=== PATIENT | female | born 1950 | race Caucasian/White ===

== ENCOUNTER 2018-06-13 11:25 | Emergency (ER) | payer MEDICARE, OTHER ==
--- NOTE | 2018-06-13 12:09 | ED Physician Documentation ---
PD HPI LOWER EXT INJURY - Stated complaint Stated Complaint: GLF - Chief complaint Chief Complaint: Ext Problem - History obtained from History obtained from: Patient - History of Present Illness PD HPI LOW EXT INJURY LOCATION: Right, Foot Type of injury: Fall (There were camping a few nights ago and she fell coming out of bed in the middle of the night. She either forcefully plantarflexed the foot or all of her weight came down on it, she does not quite remember. The pain is in the distal foot, near the distal third and fourth metatarsals. She cannot walk or bear weight. No other injuries of significance.) Review of Systems Constitutional: reports: Reviewed and negative Throat: reports: Reviewed and negative Cardiac: reports: Reviewed and negative Respiratory: reports: Reviewed and negative PD PAST MEDICAL HISTORY - Past Medical History Past Medical History: No - Past Surgical History Past Surgical History: Yes Derm: Skin cancer surgery - Present Medications Home Medications: Ambulatory Orders Medication Instructions Recorded Confirmed HYDROcod/ACETAM 5/325 [[place] 5/325] 1 - 2 ea PO Q6H PRN #20 tablet 06/13/18 Knee Scooter 1 unit TD ONCE #1 06/13/18 - Allergies Allergies/Adverse Reactions: Allergies Allergy/AdvReac Type Severity Reaction Status Date / Time Penicillins Allergy Hives Verified 06/13/18 11:34 - Social History Does the pt smoke?: No Smoking Status: Never smoker Does the pt drink ETOH?: Yes ETOH Use: Wine Does the pt have substance abuse?: No - Immunizations Immunizations are current?: Yes PD ED PE NORMAL - Vitals Vital signs reviewed: Yes - General General: Alert and oriented X 3, No acute distress - Neck Neck: Supple, no meningeal sign, No bony TTP - Back Back: No CVA TTP, No spinal TTP - Extremities Extremities: Other (The right distal foot especially dorsally and kind of on the lateral side is swollen and ecchymotic and her maximal area of tenderness is over the mid third medical tarsal I think. There is no proximal foot tenderness over the cuboid or navicular's.) - Neuro Neuro: Alert and oriented X 3, Normal speech Results - Vitals Vitals: Vital Signs - 24 hr 06/13/18 06/13/18 11:30 13:28 Temperature 37.1 C 36.9 C Heart Rate 77 66 Respiratory 18 16 Rate Blood Pressure 112/44 L 114/64 O2 Saturation 100 98 Oxygen O2 Source Room air - Rads (name of study) 3v R foot Radiology: EMP read contemporaneously (IMPRESSION: Mildly displaced distal fourth and fifth metatarsal fractures. ) Procedures - Splint (location) RLE Splint applied by: Nurse Type of splint: Fiberglass, Short leg, Posterior Other: Patient tolerated well, No complications, Neurovascular intact, Crutches provided PD MEDICAL DECISION MAKING - Sepsis Event Vital Signs: Vital Signs - 24 hr 06/13/18 06/13/18 11:30 13:28 Temperature 37.1 C 36.9 C Heart Rate 77 66 Respiratory 18 16 Rate Blood Pressure 112/44 L 114/64 O2 Saturation 100 98 Oxygen O2 Source Room air Departure - Departure Disposition: 01 Home, Self Care Clinical Impression: Metatarsal fracture Qualifiers: Encounter type: initial encounter Metatarsal bone: fourth Fracture type: closed Fracture alignment: displaced Laterality: right Qualified Code(s): S92.341A - Displaced fracture of fourth metatarsal bone, right foot, initial encounter for closed fracture Closed displaced fracture of fifth metatarsal bone Qualifiers: Encounter type: initial encounter Laterality: right Qualified Code(s): S92.351A - Displaced fracture of fifth metatarsal bone, right foot, initial encounter for closed fracture Condition: Good Record reviewed to determine appropriate education?: Yes Instructions: ED Fx Foot Follow-Up: [facility] [Provider Group] - Within 1 week Prescriptions: HYDROcod/ACETAM 5/325 [[place] 5/325] 1 - 2 ea PO Q6H PRN #20 tablet PRN Reason: Pain Knee Scooter 1 unit TD ONCE #1 Comments: Do not drink or drive while taking narcotic pain medication. Note that many narcotic pain relievers also contain Tylenol/acetaminophen. Please ensure that your total dose of acetaminophen from all sources does not exceed 3 g (3000 mg) per day. You may get constipated while on this medication. Take a stool softener such as Colace twice a day while you are on it. Also add an [id number] laxative such as senna or MiraLAX on any day that you do not have a bowel movement. If you received a narcotic pain medication or sedative while in the emergency department, do not drive for the next 24 hours. Discharge Date/Time: 06/13/18 13:28
--- NOTE | 2018-06-13 12:34 | XRAY Report ---
Procedure Date: 06/13/2018 Accession Number: [id number] / [id number] Procedure: XR - Foot 3 View RT CPT Code: FULL RESULT: EXAM: RIGHT FOOT RADIOGRAPHY EXAM DATE: 06/13/2018 12:25 PM. CLINICAL HISTORY: Right foot pain. COMPARISON: None. TECHNIQUE: 3 views. FINDINGS: Bones: There are mildly displaced fractures involving the distal shaft of the fourth and fifth metatarsal bones. No intra-articular extension is suggested. The remainder osseous structures are intact. Joints: Normal. No subluxations. Soft Tissues: Normal. No soft tissue swelling. IMPRESSION: Mildly displaced distal fourth and fifth metatarsal fractures. RADIA
[2018-06-13 13:30] VITALS: BP 114/64
== END 2018-06-13 13:28 | disposition home or self-care (01) ==
LOC: ED 11:25
DX: S92.341A Displaced fracture of fourth metatarsal bone, right foot, initial encounter for closed fracture (principal); S92.351A Displaced fracture of fifth metatarsal bone, right foot, initial encounter for closed fracture; W17.89XA Other fall from one level to another, initial encounter; Y93.89 Activity, other specified
CPT/HCPCS: 29515; 99283

== ENCOUNTER 2020-06-29 09:20 | Outpatient (CLI) | payer MEDICARE ==
--- NOTE | 2020-06-29 10:21 | MRI Report ---
PROCEDURE: Lumbar Spine W/O INDICATIONS: Low back pain with bilateral lower extremity radicular symptoms. TECHNIQUE: Noncontrast sagittal T1 spin echo and T2 fast echo, sagittal STIR, axial T1 and T2 fast spin echo thr ough the lumbar spine. In cases with scoliosis, additional coronal T2 fast spin echo may be performe d. COMPARISON: None. FINDINGS: Image quality: Excellent. Alignment and Curvature: There is normal bony alignment. Bone Marrow: Marrow is of normal overall signal. No acute vertebral body compression fractures. Spinal Cord: Normal size and position of the conus. Regional Soft Tissues: Prevertebral and paraspinous soft tissues are within normal limits. The includ ed unenhanced intra-abdominal and retroperitoneal visceral structures demonstrate no acute finding. T12-L1: No spinal canal or neural foraminal stenosis. L1-L2: No spinal canal or neural foraminal stenosis. L2-L3: No spinal canal or neural foraminal stenosis. L3-L4: No spinal canal or neural foraminal stenosis. L4-L5: Disc bulge flattens and indents the ventral thecal sac with disc material displacing the corina ateral descending L5 nerve roots within both subarticular zones, more pronounced on the right. Forami nal components of the disc bulge contribute to mild bilateral neural foraminal stenosis in conjunctio n with facet hypertrophy and buckling of the ligamentum flavum. L5-S1: Diffuse disc bulge and a superimposed broad-based posterior disc protrusion flattening the v entral thecal sac. Disc material closely approximates and may abut the descending S1 nerve roots with in both subarticular zones, but there is no evidence of significant nerve root displacement. Foramina l components of the disc bulge contributing mild bilateral neural foraminal stenosis in conjunction w ith facet hypertrophy. IMPRESSION: Degenerative changes at L4-L5 and to a lesser degree at L5-S1. At L4-L5, displacement of the descending L5 nerve roots (right greater than left) by disc material with question of possible i mpingement. Correlate for any corresponding L5 radicular symptoms. Reviewed by: Vaibhav Mendes MD on 06/29/2020 10:20 AM PDT Approved by: Vaibhav Mendes MD on 06/29/2020 10:20 AM PDT Station ID: [id number]
== END 2020-06-29 09:21 | disposition home or self-care (01) ==
LOC: DI 09:20
PROVIDERS: ATTEND Family Medicine
DX: M51.36 Other intervertebral disc degeneration, lumbar region (principal)
CPT/HCPCS: 72148

== ENCOUNTER 2020-09-18 15:10 | Outpatient (CLI) | payer MEDICARE ==
[2020-09-18 15:43] LABS: BASOPHILS # (AUTO) 0.1 10^3/uL (0.0-0.1); BASOPHILS % (AUTO) 1.3 %; EOSINOPHILS # (AUTO) 0.1 10^3/uL (0.0-0.7); EOSINOPHILS % (AUTO) 1.6 %; HGB - HEMOGLOBIN 12.7 g/dL (12.0-16.0); LYMPHOCYTES # (AUTO) 1.7 10^3/uL (1.5-3.5); LYMPHOCYTES % (AUTO) 24.4 %; MEAN CORPUSCULAR HEMOGLOBIN 32.7 pg (27.0-31.0); MEAN CORPUSCULAR HGB CONC 33.3 g/dL (32.0-36.0); MEAN CORPUSCULAR VOLUME 98.2 fL (81.0-99.0); MEAN PLATELET VOLUME 8.7 fL (7.9-10.8); MONOCYTES # (AUTO) 0.7 10^3/uL (0.0-1.0); MONOCYTES % (AUTO) 10.4 %; NEUTROPHILS # (AUTO) 4.3 10^3/uL (1.5-6.6); NEUTROPHILS % (AUTO) 61.9 %; PLT - PLATELET COUNT 378 10^3/uL (130-450); RED BLOOD COUNT 3.88 10^6/uL (4.20-5.40); RED CELL DISTRIBUTION WIDTH 13.3 % (12.0-15.0)
== END 2020-09-18 15:11 | disposition home or self-care (01) ==
LOC: LAB 15:10
PROVIDERS: ATTEND Orthopaedic Surgery Orthopaedic Surgery of the Spine
DX: Z01.812 Encounter for preprocedural laboratory examination (principal); Z01.818 Encounter for other preprocedural examination
CPT/HCPCS: 36415; 85025; 93005